=== PATIENT | male | born 1975 | race Caucasian/White ===

== ENCOUNTER 2022-02-04 20:26 | Inpatient (IN) | payer MEDICAID ==
[~2022-02-04] VITALS: Ht 177.8 cm; Wt 211.1 kg
[2022-02-04] MEDS ORDERED: SODIUM CHLORIDE 0.9% 1,000 ML IV ONE (21:15)
[2022-02-04] MEDS ORDERED: MORPHINE SULFATE 4 MG/ML CPJ (NOT FOR IM USE) IV ONE (21:15)
[2022-02-04] MEDS ORDERED: KETOROLAC 60MG/2ML VIAL IM ONE (22:45)
[2022-02-04 23:07] LABS: HEMATOCRIT. 53.8 % (42.0-52.0); HEMOGLOBIN. 17.7 g/dL (14.0-18.0); MEAN CORPUSCULAR HEMOGLOBIN 31.7 pg (28.0-32.0); MEAN CORPUSCULAR VOLUME 96.5 fL (80.0-94.0); MEAN PLATELET VOLUME 10.3 fl (7.4-10.4); PLATELET 166 x1000/uL (130-400); RED BLOOD CELL COUNT 5.58 mill/uL (4.7-6.1); RED CELL DISTRIBUTION WIDTH 15.1 % (11.6-14.6)
[2022-02-04 23:22] LABS: CHLORIDE 100 mEq/L (98-107)
[2022-02-04 23:29] LABS: PLATELET ESTIMATE NORMAL
[2022-02-04] MEDS ORDERED: CEFEPIME 2,000 MG in DEXT 5% WATER 100 ML IV SCH (23:30)
[2022-02-04] MEDS ORDERED: VANCOMYCIN 1G PREMIX 200 ML IV SCH (23:30)
[2022-02-05] MEDS ORDERED: MORPHINE SULFATE 4 MG/ML CPJ (NOT FOR IM USE) IV ONE
[2022-02-05] MEDS ORDERED: MORPHINE SULFATE 2 MG/ML CPJ (NOT FOR IM USE) IV PRN (00:45)
[2022-02-05] MEDS ORDERED: SODIUM CHLORIDE 0.9% 1,000 ML IV SCH (00:45)
[2022-02-05] MEDS ORDERED: ENOXAPARIN 40MG/0.4ML SYR SUBCUT SCH (00:45)
[2022-02-05] MEDS ORDERED: ONDANSETRON HCL 4MG/2ML INJ IV PRN (00:45)
[2022-02-05] MEDS ORDERED: CLONIDINE 0.1MG TABLET PO PRN (00:45)
[2022-02-05] MEDS ORDERED: GUAIFENESIN 200MG/10ML SUGAR FREE UDC PO PRN (00:45)
[2022-02-05] MEDS ORDERED: ACETAMINOPHEN 325MG TABLET PO PRN ×2 (00:45)
[2022-02-05] MEDS ORDERED: HYDROCODONE/ACETAMINOPHEN 5/325MG TABLET PO PRN (00:45)
[2022-02-05] MEDS ORDERED: DOCUSATE SODIUM 100MG CAPSULE PO PRN (00:45)
[2022-02-05] MEDS ORDERED: IPRATROPIUM/ALBUTEROL 0.5-3(2.5)MG/3ML NEB HHN PRN ×2 (00:45→17:45)
[2022-02-05] MEDS ORDERED: MAGNESIUM/ALUMINUM HYDROXIDE/SIMETHICONE 30ML UDC PO PRN (00:45)
[2022-02-05] MEDS: PIPERACILLIN/TAZOBACTAM 3.375 G in DEXTROSE 5% WATER 50 ML IV SCH ×3 (02:16→17:14)
[2022-02-05] MEDS ORDERED: DEXTROSE 50% WATER 50ML SYRINGE IV PRN (02:45)
[2022-02-05] MEDS ORDERED: CARV6.2548 PO (04:35)
[2022-02-05] MEDS ORDERED: FLUT12AE7 INH (04:35)
[2022-02-05] MEDS ORDERED: FURO40TA5 PO (04:35)
[2022-02-05 04:40] VITALS: BP 132/87
[2022-02-05] MEDS: BLOOD SUGAR DIAGNOSTIC STRIP TEST SCH ×3 (05:14→17:14)
[2022-02-05] MEDS: INSULIN LISPRO 100 UNITS/ML SUBCUT SCH ×3 (05:27→17:40)
[2022-02-05] MEDS ORDERED: METRONIDAZOLE 500 MG PREMIX 100 ML IV SCH (06:00)
[2022-02-05 08:00] VITALS: BP 87/63
[2022-02-05] MEDS ORDERED: NICOTINE 21MG PATCH TD SCH (09:00)
[2022-02-05] MEDS ORDERED: PANTOPRAZOLE SODIUM 40 MG/VIAL IV SCH (09:00)
[2022-02-05] MEDS ORDERED: SODIUM CHLORIDE 0.9% 500 ML IV ONE (11:00)
[2022-02-05 12:00] VITALS: BP 91/60
[2022-02-05] MEDS: MORPHINE SULFATE 4 MG/ML CPJ (NOT FOR IM USE) IV PRN ×2 (13:28→20:27)
[2022-02-05] MEDS ORDERED: NALOXONE HCL 0.4MG/ML VIAL IV PRN (13:30)
[2022-02-05 16:00] VITALS: BP 91/51
[2022-02-05] MEDS ORDERED: ONDANSETRON HCL 4MG/2ML INJ IV SCH (18:45)
[2022-02-05 20:00] VITALS: BP 116/82
[2022-02-06] MEDS ORDERED: ENOXAPARIN 40MG/0.4ML SYR SUBCUT SCH (09:00)
[2022-03-01] MEDS ORDERED: SODIUM CHLORIDE 0.9% 500 ML IV ONE (11:00)
== END 2022-02-05 20:36 | disposition left against medical advice (07) | DRG 254 ==
LOC: ER 20:26 → MICUSO 23:06 → 8WST 02-05 04:04
PROVIDERS: ADMIT Internal Medicine Nephrology; ATTEND Internal Medicine Nephrology
DX: K46.9 Unspecified abdominal hernia without obstruction or gangrene (principal); N17.0 Acute kidney failure with tubular necrosis; I11.0 Hypertensive heart disease with heart failure; K56.609 Unspecified intestinal obstruction, unspecified as to partial versus complete obstruction; I50.9 Heart failure, unspecified; I95.9 Hypotension, unspecified; E83.51 Hypocalcemia; E87.1 Hypo-osmolality and hyponatremia; E88.09 Other disorders of plasma-protein metabolism, not elsewhere classified; D72.829 Elevated white blood cell count, unspecified; E66.01 Morbid (severe) obesity due to excess calories; F17.210 Nicotine dependence, cigarettes, uncomplicated; R73.9 Hyperglycemia, unspecified; Z53.29 Procedure and treatment not carried out because of patient's decision for other reasons; J44.9 Chronic obstructive pulmonary disease, unspecified; D72.825 Bandemia; J98.11 Atelectasis; E80.6 Other disorders of bilirubin metabolism; Z68.44 Body mass index [BMI] 60.0-69.9, adult; Z71.3 Dietary counseling and surveillance
CPT/HCPCS: 36415; 71045; 80048; 80053; 82962; 83036; 83605; 85025; 85379; 93005; 93970; 99291; C9113; J0692; J1650; J1885; J2270; J2405; J2543; J3370; J3490; J7030; J7060